=== PATIENT | female | born 1965 | race Caucasian/White ===

== ENCOUNTER → 2016-05-11 | Outpatient (CLI) | payer MEDICARE ==
--- NOTE | 2016-05-12 13:05 | MM ---
Reason for exam: screening (asymptomatic). Last mammogram was performed 4 years and 6 months ago. History: Patient had first child at age 32. Reductions of both breasts, April 2006. Physical Findings: A clinical breast exam by your physician is recommended on an annual basis and results should be correlated with mammographic findings. MG 3D Screening Mammo W/Cad Bilateral CC and MLO view(s) were taken. Prior study comparison: October 25, 2011, CAD bilateral diagnostic mammogram. April 13, 2008, bilateral diagnostic digital mammog. There are scattered fibroglandular densities. Finding: There are typically benign round calcifications in both breasts. There is a chronic nodularity in the right breast. There is no discrete abnormality. ASSESSMENT: Benign, BI-RAD 2 RECOMMENDATION: Routine screening mammogram of both breasts in 1 year.
== END | disposition home or self-care (01) ==
LOC: RADMAMWWP 16:12
PROVIDERS: ATTEND Obstetrics & Gynecology
DX: Z12.31 Encounter for screening mammogram for malignant neoplasm of breast (principal); Z98.890 Other specified postprocedural states
CPT/HCPCS: 77063; G0202

== ENCOUNTER → 2017-09-12 | Outpatient (CLI) | payer MEDICARE ==
[2017-09-12 09:59] LABS: HCT 40.7 % (34.0-46.0); MCH 29.7 pg (25.0-35.0); MCHC 34.3 g/dL (31.0-37.0); MCV 86.4 fL (80.0-100.0); Mean Platelet Volume 8.2; Platelet Count 182 k/uL (150-450); RBC 4.71 m/uL (3.80-5.40); RDW 13.5 % (11.5-15.5); WBC 5.4 k/uL (3.8-10.6)
[2017-09-12 10:36] LABS: ALT 37 U/L (9-52); AST 20 U/L (14-36); Albumin 4.1 g/dL (3.5-5.0); Alkaline Phosphatase 61 U/L (38-126); Anion Gap 11 mmol/L; Blood Urea Nitrogen 14 mg/dL (7-17); Calcium 9.7 mg/dL (8.4-10.2); Carbon Dioxide 27 mmol/L (22-30); Chloride 105 mmol/L (98-107); Cholesterol 204 mg/dL (<200); Glucose 80 mg/dL (74-99); HDL Cholesterol 43 mg/dL (40-60); LDL Cholesterol,Calculated 131 mg/dL (0-99); Potassium 4.4 mmol/L (3.5-5.1); Sodium 143 mmol/L (137-145); Total Bilirubin 0.4 mg/dL (0.2-1.3); Total Protein 6.4 g/dL (6.3-8.2); Triglycerides 150 mg/dL (<150)
== END | disposition home or self-care (01) ==
LOC: LABWHC1 09:09
PROVIDERS: ATTEND Obstetrics & Gynecology
DX: Z13.1 Encounter for screening for diabetes mellitus (principal); Z13.220 Encounter for screening for lipoid disorders
CPT/HCPCS: 36415; 80053; 80061; 84439; 84443; 84479; 85027

== ENCOUNTER 2017-10-17 20:41 | Observation (INO) | payer MEDICARE ==
[2017-10-17] MEDS ORDERED: ASPIRIN 81 MG PO STA (21:41)
--- NOTE | 2017-10-17 21:45 | ED ---
General Adult HPI - General Chief complaint: Chest Pain Stated complaint: chest pain Source: patient Mode of arrival: ambulatory Limitations: no limitations - History of Present Illness Initial comments: Dictation was produced using [employer] dictation software. please excuse any grammatical, word or spelling errors. Chief Complaint: 52-year-old female past medical history of asthma, dyslipidemia presents with chest pain 1 week. History of Present Illness: Her symptoms are described as a dull pressure to the substernal area that radiates to the back. Patient's CT symptoms started about 7 days ago progressively increased to today. States her symptoms were worse today prompted her to come to the emergency Department. She states that her symptoms began chest with radiation to the back and to the bilateral jaw area. She has positive family history of cardiac disease in her family were her grandfather had heart attack when he was around the same age. Patient denies any associated diaphoresis or radiation to the upper extremities. The ROS documented in this emergency department record has been reviewed and confirmed by me. Those systems with pertinent positive or negative responses have been documented in the HPI. All other systems are other negative and/or noncontributory. - Related Data Home Medications Medication Instructions Recorded Confirmed Albuterol Sulfate [Ventolin HFA] 2 puff INHALATION RT-Q4H PRN 03/11/14 10/17/17 Ibuprofen [Motrin] 800 mg PO TID PRN 03/11/14 10/17/17 LORazepam [Ativan] 1 mg PO TID PRN 03/11/14 10/17/17 traZODone HCL 150 mg PO HS 03/11/14 10/17/17 Acetaminophen Tab [Tylenol Tab] 650 mg PO Q4H PRN 10/17/17 10/17/17 Montelukast [Singulair] 10 mg PO DAILY 10/17/17 10/17/17 Previous Rx's Medication Instructions Recorded Sertraline [Zoloft] 150 mg PO HS #90 tab 03/18/14 Allergies Allergy/AdvReac Type Severity Reaction Status Date / Time latex Allergy Anaphylaxis Verified 10/17/17 22:23 Review of Systems ROS Statement: Those systems with pertinent positive or pertinent negative responses have been documented in the HPI. ROS Other: All systems not noted in ROS Statement are negative. Past Medical History Past Medical History: Asthma, Eye Disorder, Osteoarthritis (OA) Additional Past Medical History / Comment(s): History of chest pain but no problems found. Hx of detached retina History of Any Multi-Drug Resistant Organisms: None Reported Past Surgical History: Breast Surgery, Hernia Repair, Tonsillectomy Additional Past Surgical History / Comment(s): anabell breast reduction, Past Anesthesia/Blood Transfusion Reactions: No Reported Reaction Past Psychological History: ADD/ADHD, Anxiety, Depression Smoking Status: Never smoker Past Alcohol Use History: Occasional Past Drug Use History: Marijuana General Exam - General Exam Comments Initial Comments: PHYSICAL EXAM: General Impression: Alert and oriented x3, not in acute distress HEENT: Normocephalic atraumatic, extra-ocular movements intact, pupils equal and reactive to light bilaterally, mucous membranes moist. Cardiovascular: Heart regular rate and rhythm, S1&S2 audible, no murmurs, rubs or gallops Chest: Lungs clear to auscultation bilaterally, no rhonchi, no wheeze, no rales Abdomen: Bowel sounds present, abdomen soft, non-tender, non-distended, no organomegaly Musculoskeletal: Pulses present and equal in all extremities, no peripheral edema Motor: Power 5/5 bilaterally, no focal deficits noted Neurological: CN II-XII grossly intact, no focal motor or sensory deficits noted Skin: Intact with no visualized rashes Psych: Normal affect and mood Limitations: no limitations Course Vital Signs 10/17/17 10/17/17 20:53 22:11 Temperature 98.9 F Pulse Rate 69 68 Respiratory 18 18 Rate Blood Pressure 123/83 121/75 O2 Sat by Pulse 98 96 Oximetry Medical Decision Making - Medical Decision Making ED course: 52-year-old female with clinical presentation suspicious for acute coronary syndrome. Vital signs upon arrival are within normal limits. EKG shows nonspecific T-wave changes in the precordial leads. Patient is well-appearing at this time. She denies any chest pain at the moment. Patient has multiple risk factors including her comorbidities and family history. Cardiac workup was performed. She reports having had cardiac workup several years ago where stress test was performed and found to be unremarkable.Laboratory evaluation obtained. CBC unremarkable, cardiac panel unremarkable. Metabolic panel is unremarkable. First troponin is negative. Chest x-ray shows no acute processes. Given clinical presentation there is some suspicion that her symptoms represent acute coronary syndrome. She has multiple risk factors. Patient to be placed in observation for cardiac stress test. EKG interpretation: Ventricular rate 70. Sinus rhythm. VA interval 168, QRS 88 , QTC 390 No VA prolongation, no QTC prolongation, no ST or T-wave changes noted. Nonspecific T-wave inversions in precordial leads. Overall, this EKG is unremarkable - Lab Data Result diagrams: 10/17/17 21:30 10/17/17 21:30 Lab Results 10/17/17 10/17/17 10/17/17 Range/Units 21:30 21:30 21:30 WBC 5.9 (3.8-10.6) k/uL RBC 4.33 (3.80-5.40) m/uL Hgb 12.9 (11.4-16.0) gm/dL Hct 37.0 (34.0-46.0) % MCV 85.3 (80.0-100.0) fL MCH 29.7 (25.0-35.0) pg MCHC 34.8 (31.0-37.0) g/dL RDW 13.9 (11.5-15.5) % Plt Count 194 (150-450) k/uL Neutrophils % 56 % Lymphocytes % 31 % Monocytes % 6 % Eosinophils % 4 % Basophils % 1 % Neutrophils # 3.3 (1.3-7.7) k/uL Lymphocytes # 1.8 (1.0-4.8) k/uL Monocytes # 0.4 (0-1.0) k/uL Eosinophils # 0.3 (0-0.7) k/uL Basophils # 0.0 (0-0.2) k/uL PT (9.0-12.0) sec INR (<1.2) APTT (22.0-30.0) sec Sodium 139 (137-145) mmol/L Potassium 3.8 (3.5-5.1) mmol/L Chloride 105 (98-107) mmol/L Carbon Dioxide 24 (22-30) mmol/L Anion Gap 10 mmol/L BUN 14 (7-17) mg/dL Creatinine 1.10 H (0.52-1.04) mg/dL Est GFR (CKD-EPI)AfAm 66 (>60 ml/min/1.73 sqM) Est GFR (CKD-EPI)NonAf 57 (>60 ml/min/1.73 sqM) Glucose 91 (74-99) mg/dL Calcium 9.4 (8.4-10.2) mg/dL Magnesium 2.1 (1.6-2.3) mg/dL Total Bilirubin 0.3 (0.2-1.3) mg/dL AST 28 (14-36) U/L ALT 45 (9-52) U/L Alkaline Phosphatase 60 (38-126) U/L Total Creatine Kinase 108 (30-135) U/L CK-MB (CK-2) 1.0 (0.0-2.4) ng/mL CK-MB (CK-2) Rel Index 0.9 Troponin I <0.012 (0.000-0.034) ng/mL Total Protein 6.2 L (6.3-8.2) g/dL Albumin 4.1 (3.5-5.0) g/dL 10/17/17 Range/Units 21:30 WBC (3.8-10.6) k/uL RBC (3.80-5.40) m/uL Hgb (11.4-16.0) gm/dL Hct (34.0-46.0) % MCV (80.0-100.0) fL MCH (25.0-35.0) pg MCHC (31.0-37.0) g/dL RDW (11.5-15.5) % Plt Count (150-450) k/uL Neutrophils % % Lymphocytes % % Monocytes % % Eosinophils % % Basophils % % Neutrophils # (1.3-7.7) k/uL Lymphocytes # (1.0-4.8) k/uL Monocytes # (0-1.0) k/uL Eosinophils # (0-0.7) k/uL Basophils # (0-0.2) k/uL PT 10.0 (9.0-12.0) sec INR 1.0 (<1.2) APTT 23.5 (22.0-30.0) sec Sodium (137-145) mmol/L Potassium (3.5-5.1) mmol/L Chloride (98-107) mmol/L Carbon Dioxide (22-30) mmol/L Anion Gap mmol/L BUN (7-17) mg/dL Creatinine (0.52-1.04) mg/dL Est GFR (CKD-EPI)AfAm (>60 ml/min/1.73 sqM) Est GFR (CKD-EPI)NonAf (>60 ml/min/1.73 sqM) Glucose (74-99) mg/dL Calcium (8.4-10.2) mg/dL Magnesium (1.6-2.3) mg/dL Total Bilirubin (0.2-1.3) mg/dL AST (14-36) U/L ALT (9-52) U/L Alkaline Phosphatase (38-126) U/L Total Creatine Kinase (30-135) U/L CK-MB (CK-2) (0.0-2.4) ng/mL CK-MB (CK-2) Rel Index Troponin I (0.000-0.034) ng/mL Total Protein (6.3-8.2) g/dL Albumin (3.5-5.0) g/dL Disposition Clinical Impression: Chest pain Disposition: ADMITTED IP TO THIS [facility] Referrals: Ashly Lopes MD [Primary Care Provider] - 1-2 days Decision Time: 23:18
[2017-10-17 22:18] LABS: Basophils % (A) 1 %; Eosinophils # (A) 0.3 k/uL (0-0.7); Eosinophils % (A) 4 %; HGB 12.9 gm/dL (11.4-16.0); Lymphocytes # (A) 1.8 k/uL (1.0-4.8); Lymphocytes % (A) 31 %; MCH 29.7 pg (25.0-35.0); MCHC 34.8 g/dL (31.0-37.0); MCV 85.3 fL (80.0-100.0); Mean Platelet Volume 8.1; Monocytes # (A) 0.4 k/uL (0-1.0); Monocytes % (A) 6 %; Neutrophils # (A) 3.3 k/uL (1.3-7.7); Neutrophils % (A) 56 %; Platelet Count 194 k/uL (150-450); RBC 4.33 m/uL (3.80-5.40); RDW 13.9 % (11.5-15.5); WBC 5.9 k/uL (3.8-10.6)
[2017-10-17 22:25] LABS: Albumin 4.1 g/dL (3.5-5.0); Calcium 9.4 mg/dL (8.4-10.2); Magnesium 2.1 mg/dL (1.6-2.3); Potassium 3.8 mmol/L (3.5-5.1); Total Bilirubin 0.3 mg/dL (0.2-1.3); Total Protein 6.2 g/dL (6.3-8.2)
[2017-10-17 22:26] LABS: Partial Thromboplastin Time 23.5 sec (22.0-30.0)
--- NOTE | 2017-10-17 22:38 | XR ---
EXAMINATION TYPE: XR chest 2V DATE OF EXAM: 10/17/2017 COMPARISON: 07/01/2013 HISTORY: Chest pressure TECHNIQUE: Frontal and lateral views of the chest are obtained. FINDINGS: Heart and mediastinum are normal. Lungs are clear. Diaphragm is normal. Bony thorax appear s normal. IMPRESSION: Normal chest. No change.
[2017-10-17 22:40] LABS: Creatine Kinase 108 U/L (30-135)
[2017-10-17 22:53] LABS: Troponin I <0.012 ng/mL (0.000-0.034)
[2017-10-17] MEDS ORDERED: NALOXONE 0.4 MG/ML 1 ML VIAL IV PRN (23:15)
[2017-10-18 01:51] VITALS: RESP 16
[2017-10-18 01:53] VITALS: BMI 28.0
[2017-10-18] MEDS ORDERED: traZODone HCL 50 MG TAB PO ONE (02:22)
[2017-10-18] MEDS ORDERED: ACETAMINOPHEN TAB 325 MG TAB PO PRN (09:08)
[2017-10-18] MEDS ORDERED: ALBUTEROL NEBULIZED 2.5 MG/3 ML INHALATION PRN (09:08)
[2017-10-18] MEDS ORDERED: LORazepam 1 MG TAB PO PRN (09:08)
[2017-10-18] MEDS ORDERED: MONTELUKAST 10 MG TAB PO SCH (09:15)
--- NOTE | 2017-10-18 11:03 | P.CRDCN ---
History of Present Illness History of present illness: Mrs. Carrera is a pleasant 52-year-old female past medical history significant for asthma, anxiety and occasional marijuana use. She denies history of coronary artery disease. She has not seen a banana expert in over 5 years. We have been asked to see her in consultation for chest pain. She complains of non-specific chest pain intermittently for the past week. The pain starts in the mid-sternal region and radiates up into her neck. She has associated shortness of breath and dizziness. Yesterday while at work the dizziness was very intense requiring her to come for evaluation. She denies associated palpitations, nausea, vomiting or diaphoresis. She also complains of generalized fatigue for the past week as well. She saw here PCP for the shortness of breath and they started her back on singulair. She did have her cholesterol checked 3 months ago by her primary and it was elevated and diet/ exercise were recommended. EKG reveals sinus mechanism with no acute ST or T-wave abnormalities. Chest xray negative for an acute cardiopulmonary process. Laboratory data reviewed, hemoglobin 12.9, platelets 194, d-dimer negative, sodium 139, potassium 3.8, magnesium 2.1, creatinine 1.1, cardiac enzymes negative 3. Review of Systems At the time of my exam: CONSTITUTIONAL: Denies fever. Denies chills. EYES: Denies blurred vision. Denies vision changes. Denies eye pain. EARS, NOSE, MOUTH & THROAT: Denies headache. Denies sore throat. Denies ear pain. CARDIOVASCULAR: Denies chest pain. Denies shortness of breath. Denies orthopnea. Denies PND. Denies palpitations. RESPIRATORY: Denies cough. GASTROINTESTINAL: Denies abdominal pain. Denies diarrhea. Denies constipation. Denies nausea. Denies vomiting. MUSCULOSKELETAL: Denies myalgias. INTEGUMENTARY: Denies pruitis. Denies rash. NEUROLOGIC: Denies numbness. Denies tingling. Denies weakness. PSYCHIATRIC: Denies anxiety. Denies depression. ENDOCRINE: Denies fatigue. Denies weight change. Denies polydipsia. Denies polyurina. GENITOURINARY: Denies burning, hematuria or urgency with micturation. HEMATOLOGIC: Denies history of anemia. Denies bleeding. Past Medical History Past Medical History: Asthma, Eye Disorder, Osteoarthritis (OA) Additional Past Medical History / Comment(s): History of chest pain but no problems found. Hx of detached retina History of Any Multi-Drug Resistant Organisms: None Reported Past Surgical History: Breast Surgery, Hernia Repair, Tonsillectomy Additional Past Surgical History / Comment(s): anabell breast reduction, D and C for heavy bleeding Past Anesthesia/Blood Transfusion Reactions: No Reported Reaction Smoking Status: Never smoker - Past Family History Mother Family Medical History: Cancer Additional Family Medical History / Comment(s): Lung CA, ETOH Father Family Medical History: Cancer Additional Family Medical History / Comment(s): Skin Ca Medications and Allergies Home Medications Medication Instructions Recorded Confirmed Type Albuterol Sulfate [Ventolin HFA] 2 puff INHALATION RT-Q4H PRN 03/11/14 10/18/17 History Ibuprofen [Motrin] 800 mg PO TID PRN 03/11/14 10/18/17 History LORazepam [Ativan] 1 mg PO TID PRN 03/11/14 10/18/17 History traZODone HCL 150 mg PO HS 03/11/14 10/18/17 History Sertraline [Zoloft] 150 mg PO HS #90 tab 03/18/14 10/18/17 Rx Acetaminophen Tab [Tylenol Tab] 650 mg PO Q4H PRN 10/17/17 10/18/17 History Montelukast [Singulair] 10 mg PO DAILY 10/17/17 10/18/17 History Allergies Allergy/AdvReac Type Severity Reaction Status Date / Time azithromycin Allergy Rash/Hives Verified 10/18/17 01:42 latex Allergy Anaphylaxis Verified 10/18/17 01:42 Physical Exam Vitals: Vital Signs Temp Pulse Pulse Resp BP BP Pulse Ox 10/18/17 07:00 98.3 F 65 16 95/56 97 10/18/17 03:44 97.6 F 54 L 16 99/53 98 10/18/17 03:36 16 10/18/17 02:12 16 10/18/17 01:51 97.4 F L 53 L 16 125/76 100 10/17/17 23:51 58 L 17 124/68 100 10/17/17 22:11 68 18 121/75 96 10/17/17 20:53 98.9 F 69 18 123/83 98 Intake and Output 10/17/17 10/18/17 10/18/17 22:59 06:59 14:59 Other: # Voids 1 Weight 81.193 kg 81.1 kg Blood pressure 95/56 heart rate 65 afebrile maintaining oxygen saturation on room air GENERAL: This is a 52-year-old female in no apparent distress at the time of my examination. HEENT: Head is atraumatic, normocephalic. Pupils are equal, round. Sclerae anicteric. Conjunctivae are clear. Mucous membranes of the mouth are moist. Neck is supple. There is no jugular venous distention. No carotid bruit is heard. LUNGS: Clear to auscultation no wheezes, rales or rhonchi. No chest wall tenderness is noted on palpation or with deep breathing. HEART: Regular rate and rhythm without murmurs, rubs or gallops. S1 and S2 heard. ABDOMEN: Soft, nontender. Bowel sounds are heard. No organomegaly noted. EXTREMITIES: No evidence of peripheral edema and no calf tenderness noted. VASCULAR: Radial and dorsalis pedis pulses palpated, no evidence of clubbing. NEUROLOGIC: Patient is awake, alert and oriented x3. Results 10/17/17 21:30 10/17/17 21:30 Cardiac Enzymes 10/17/17 10/17/17 10/18/17 Range/Units 21:30 21:30 06:29 AST 28 (14-36) U/L CK-MB (CK-2) 1.0 (0.0-2.4) ng/mL Troponin I <0.012 <0.012 (0.000-0.034) ng/mL Coagulation 10/17/17 Range/Units 21:30 PT 10.0 (9.0-12.0) sec APTT 23.5 (22.0-30.0) sec CBC 10/17/17 Range/Units 21:30 WBC 5.9 (3.8-10.6) k/uL RBC 4.33 (3.80-5.40) m/uL Hgb 12.9 (11.4-16.0) gm/dL Hct 37.0 (34.0-46.0) % Plt Count 194 (150-450) k/uL Comprehensive Metabolic Panel 10/17/17 Range/Units 21:30 Sodium 139 (137-145) mmol/L Potassium 3.8 (3.5-5.1) mmol/L Chloride 105 (98-107) mmol/L Carbon Dioxide 24 (22-30) mmol/L BUN 14 (7-17) mg/dL Creatinine 1.10 H (0.52-1.04) mg/dL Glucose 91 (74-99) mg/dL Calcium 9.4 (8.4-10.2) mg/dL AST 28 (14-36) U/L ALT 45 (9-52) U/L Alkaline Phosphatase 60 (38-126) U/L Total Protein 6.2 L (6.3-8.2) g/dL Albumin 4.1 (3.5-5.0) g/dL Current Medications Generic Name Dose Route Start Last Admin Trade Name Freq PRN Reason Stop Dose Admin Naloxone HCl 0.2 mg 10/17/17 23:15 Narcan IV Q2M PRN Opioid Reversal Intake and Output 10/17/17 10/18/17 10/18/17 22:59 06:59 14:59 Other: # Voids 1 Weight 81.193 kg 81.1 kg 10/17/17 21:30 10/17/17 21:30 Assessment and Plan Assessment: ASSESSMENT Chest pain, atypical. An acute coronary event has been ruled out with no EKG evidence of ischemia and negative cardiac enzymes. Dyslipidemia Asthma PLAN Obtain 2-D echocardiogram and Doppler study to assess cardiac structure and function. Perform stress echocardiogram to assess her chest induced cardiac ischemia. Recommend lifestyle modifications for lowering of LDL cholesterol. Her ASCVD 10 year risk is 2.3%. No statins indicated at this time. His chest chest is normal she is stable from a cardiac perspective, follow-up with Dr. King in 3-4 weeks. Thank you kindly for this consultation. Nurse Practitioner note has been reviewed, I agree with a documented findings and plan of care. Patient was seen and examined.
[2017-10-18 11:52] LABS: Blood Urea Nitrogen 15 mg/dL (7-17); Cholesterol 183 mg/dL (<200); HDL Cholesterol 37 mg/dL (40-60); LDL Cholesterol,Calculated 118 mg/dL (0-99); Triglycerides 140 mg/dL (<150)
[2017-10-18 12:30] VITALS: BP 93/65; PULSE 89; TEMP 97.5
--- NOTE | 2017-10-18 15:21 | ECHOS ---
STRESS ECHOCARDIOGRAM INDICATIONS: Chest pain. BASELINE HEART RATE: 59 BASELINE BLOOD PRESSURE: 112/63 MAXIMUM HEART RATE: 153 MAXIMUM BLOOD PRESSURE: 115/64 85% MPHR: 141 100% MPHR: 160 METS: 10.5 MAXIMUM STAGE REACHED: III TOTAL EXERCISE TIME: 9:30 CLINICAL INFORMATION: A 52-year-old female with a history of recurrent chest discomfort. Baseline heart rate 59 beats per minute, baseline blood pressure 112/63 mmHg. intervals. Patient exercised on a Aaron protocol for 9 minutes 30 seconds achieving a peak heart rate of 153 beats per minute. Normal blood pressure response. There was an initial increase in her blood pressure followed by drop in blood pressure. At recovery, blood pressure was 107/62 mmHg. She complained of chest discomfort through the chest with shortness of breath. There was no ECG evidence for ischemia. No arrhythmias were noted. Baseline 2D echo images showed normal LV size and systolic function without segmental wall motion abnormalities. At peak exercise, there was excellent augmentation of overall LV contractility without developing any wall motion abnormalities. At recovery, regional global LV systolic function remained normal. IMPRESSION: Good exercise capacity, no ECG or echocardiographic evidence for ischemia. Mild drop in blood pressure at peak exercise. MMODL / IJN: [id number] /
--- NOTE | 2017-10-18 17:47 | ECHOF ---
Referral Reason:cp, sob MEASUREMENTS -------- HEIGHT: 170.2 cm WEIGHT: 80.7 kg BP: 95/56 IVSd: 1.1 cm (0.6 - 1.1) LVIDd: 4.4 cm (3.9 - 5.3) LVPWd: 1.0 cm (0.6 - 1.1) IVSs: 1.5 cm LVIDs: 2.8 cm LVPWs: 1.6 cm LA Diam: 3.6 cm (2.7 - 3.8) RVIDd: 3.1 cm (< 3.3) LAESV Index (A-L): 19.62 ml/m Ao Diam: 3.1 cm (2.0 - 3.7) AV Cusp: 2.2 cm (1.5 - 2.6) EPSS: 0.3 cm MV E Oh: 0.95 m/s MV DecT: 207 ms MV A Oh: 0.88 m/s MV E/A Ratio: 1.07 MV EF SLOPE: 96.51 mm/s (70 - 150) MV EXCURSION: 14.64 mm (> 18.000) FINDINGS -------- Sinus rhythm. This was a technically good study. The left ventricular size is normal. There is borderline concentric left ventricular hypertrophy. Overall left ventricular systolic function is normal with, an EF between 60 - 65 %. The right ventricle is normal in size. Normal LA size by volume 22+/-6 ml/m2. The right atrium is normal in size. There is mild aortic valve sclerosis. Mild mitral annular calcification present. The tricuspid valve appears structurally normal. There is no pulmonic regurgitation present. The aortic root size is normal. Normal inferior vena cava with normal inspiratory collapse consistent with estimated right atrial pre ssure of 5 mmHg. There is no pericardial effusion. CONCLUSIONS -------- 1. Sinus rhythm. 2. This was a technically good study. 3. The left ventricular size is normal. 4. There is borderline concentric left ventricular hypertrophy. 5. Overall left ventricular systolic function is normal with, an EF between 60 - 65 %. 6. The right ventricle is normal in size. 7. Normal LA size by volume 22+/-6 ml/m2. 8. The right atrium is normal in size. 9. There is mild aortic valve sclerosis. 10. Mild mitral annular calcification present. 11. The tricuspid valve appears structurally normal. 12. There is no pulmonic regurgitation present. 13. The aortic root size is normal. 14. Normal inferior vena cava with normal inspiratory collapse consistent with estimated right atrial pressure of 5 mmHg. 15. There is no pericardial effusion. RN ENDOCRINOLOGY: Emelina Gates RDCS
[2017-10-18] MEDS ORDERED: SERTRALINE 50 MG TAB PO SCH (21:00)
[2017-10-18] MEDS ORDERED: traZODone HCL 100 MG TAB PO SCH (21:00)
--- NOTE | 2017-10-19 00:56 | P.HPIM ---
History of Present Illness H&P Date: 10/18/17 Chief Complaint: Chest pain Mrs. Carrera is a pleasant 52-year-old female past medical history significant for asthma, anxiety and occasional marijuana use. She complains of non-specific chest pain intermittently for the past week. The pain starts in the mid-sternal region and radiates up into her neck. She has associated shortness of breath and dizziness. Yesterday while at work the dizziness was very intense requiring her to come for evaluation. She denies associated palpitations, nausea, vomiting or diaphoresis. She also complains of generalized fatigue for the past week as well. She saw here PCP for the shortness of breath and they started her back on singulair. She did have her cholesterol checked 3 months ago by her primary and it was elevated and diet/ exercise were recommended. EKG reveals sinus mechanism with no acute ST or T-wave abnormalities. Chest xray negative for an acute cardiopulmonary process. Laboratory data reviewed, hemoglobin 12.9, platelets 194, d-dimer negative, sodium 139, potassium 3.8, magnesium 2.1, creatinine 1.1, cardiac enzymes negative 3. Review of Systems Constitutional: Patient denies any fever or chills . No generalized weakness or weight loss. Abdomen: Patient denied nausea vomiting and diarrhea and abdominal pain. Cardiovascular: Patient denies any chest pain or short of breath no palpitations. Respiratory: patient denied any cough is from production. No shortness of breath Neurologic: Patient denied any numbness or tingling headache. Musculoskeletal: Patient denies any complaints of joint swelling or deformity. Skin: Negative Psychiatric: Negative Endocrine: No heat or cold intolerance. No recent weight gain. Genitourinary: No dysuria or hematuria. All other 14 point ROS negative except the above Past Medical History Past Medical History: Asthma, Eye Disorder, Osteoarthritis (OA) Additional Past Medical History / Comment(s): History of chest pain but no problems found. Hx of detached retina History of Any Multi-Drug Resistant Organisms: None Reported Past Surgical History: Breast Surgery, Hernia Repair, Tonsillectomy Additional Past Surgical History / Comment(s): anabell breast reduction, D and C for heavy bleeding Past Anesthesia/Blood Transfusion Reactions: No Reported Reaction Smoking Status: Never smoker - Past Family History Mother Family Medical History: Cancer Additional Family Medical History / Comment(s): Lung CA, ETOH Father Family Medical History: Cancer Additional Family Medical History / Comment(s): Skin Ca Medications and Allergies Home Medications Medication Instructions Recorded Confirmed Type Albuterol Sulfate [Ventolin HFA] 2 puff INHALATION RT-Q4H PRN 03/11/14 10/18/17 History LORazepam [Ativan] 1 mg PO TID PRN 03/11/14 10/18/17 History traZODone HCL 150 mg PO HS 03/11/14 10/18/17 History Sertraline [Zoloft] 150 mg PO HS #90 tab 03/18/14 10/18/17 Rx Acetaminophen Tab [Tylenol] 650 mg PO Q4H PRN 10/17/17 10/18/17 History Montelukast [Singulair] 10 mg PO DAILY 10/17/17 10/18/17 History Allergies Allergy/AdvReac Type Severity Reaction Status Date / Time azithromycin Allergy Rash/Hives Verified 10/18/17 01:42 latex Allergy Anaphylaxis Verified 10/18/17 01:42 Physical Exam Vitals: Vital Signs Temp Pulse Pulse Resp BP BP Pulse Ox 10/18/17 07:00 98.3 F 65 16 95/56 97 10/18/17 03:44 97.6 F 54 L 16 99/53 98 10/18/17 03:36 16 10/18/17 02:12 16 10/18/17 01:51 97.4 F L 53 L 16 125/76 100 10/17/17 23:51 58 L 17 124/68 100 10/17/17 22:11 68 18 121/75 96 10/17/17 20:53 98.9 F 69 18 123/83 98 Intake and Output 10/17/17 10/18/17 10/18/17 22:59 06:59 14:59 Other: # Voids 1 Weight 81.193 kg 81.1 kg PHYSICAL EXAMINATION: Patient is lying in the bed comfortably, no acute distress, awake alert and oriented.. HEENT: Normocephalic. Neck is supple. Pupils reactive. Nostrils clear. Oral cavity is moist. Ears reveal no drainage. Neck reveals no JVD, carotid bruits, or thyromegaly. CHEST EXAMINATION: Trachea is central. Symmetrical expansion. Lung jackman clear to auscultation and percussion. CARDIAC: Normal S1, S2 with no gallops. No murmurs ABDOMEN: Soft. Bowel sounds normal. No organomegaly. No abdominal bruits. Extremities: reveal no edema. No clubbing or cyanosis Neurologically awake, alert, oriented x3 with well-coordinated movements. No focal deficits noted Skin: No rash or skin lesions. Psychiatric: Coperative. Nonsuicidal Musculoskeletal: No joint swelling or deformity. Normal range of motion. Results CBC & Chem 7: 10/17/17 21:30 10/18/17 06:29 Labs: Abnormal Lab Results - Last 24 Hours (Table) 10/17/17 10/18/17 Range/Units 21:30 06:29 Creatinine 1.10 H (0.52-1.04) mg/dL Total Protein 6.2 L (6.3-8.2) g/dL LDL Cholesterol, Calc 118 H (0-99) mg/dL HDL Cholesterol 37 L (40-60) mg/dL Thrombosis Risk Factor Assmnt - Choose All That Apply Each Factor Represents 1 point: Age 41-60 years Thrombosis Risk Factor Assessment Total Risk Factor Score: 1 Thrombosis Risk Factor Assessment Level: Low Risk Assessment and Plan Assessment: ASSESSMENT Chest pain, atypical. An acute coronary event has been ruled out with no EKG evidence of ischemia and negative cardiac enzymes. Dyslipidemia Asthma Nausea arthritis Depression PLAN Patient be continued on telemetry monitoring. Serial EKGs and troponins negative. LDL 118. Cardiology has seen the patient and recommended stress echocardiogram. Time with Patient: Greater than 30
--- NOTE | 2017-10-19 00:58 | P.DS ---
Providers Date of admission: 10/17/17 23:15 Expected date of discharge: 10/18/17 Attending physician: Sundar Daniel MD Consults: 10/18/17 03:46 Consult Physician Routine Consulting Provider: Cayetano Velazco Consult Reason/Comments: Chest Pain Do you want consulting provider notified?: Yes, Notify in am Primary care physician: Moses Limon Hospital Course: Discharge diagnosis Chest pain, atypical. An acute coronary event has been ruled out with no EKG evidence of ischemia and negative cardiac enzymes. Dyslipidemia Asthma Nausea arthritis Depression Hospital course Mrs. Carrera is a pleasant 52-year-old female past medical history significant for asthma, anxiety and occasional marijuana use. She complains of non-specific chest pain intermittently for the past week. The pain starts in the mid-sternal region and radiates up into her neck. She has associated shortness of breath and dizziness. Yesterday while at work the dizziness was very intense requiring her to come for evaluation. She denies associated palpitations, nausea, vomiting or diaphoresis. She also complains of generalized fatigue for the past week as well. She saw here PCP for the shortness of breath and they started her back on singulair. She did have her cholesterol checked 3 months ago by her primary and it was elevated and diet/ exercise were recommended. EKG reveals sinus mechanism with no acute ST or T-wave abnormalities. Chest xray negative for an acute cardiopulmonary process. Laboratory data reviewed, hemoglobin 12.9, platelets 194, d-dimer negative, sodium 139, potassium 3.8, magnesium 2.1, creatinine 1.1, cardiac enzymes negative 3. Patient was continued on telemetry monitoring. Serial EKGs and troponins negative. LDL 118. Cardiology has seen the patient and recommended stress echocardiogram. Lifestyle modification for hyperlipidemia was recommended. She was echocardiogram showed good exercise capacity. No EKG or echocardiographic evidence of ischemia. Patient is otherwise symptom free. Stable to be discharged home. Discharge physical examination was done and vitals reviewed. Patient Condition at Discharge: Good Plan - Discharge Summary New Discharge Prescriptions: Continue traZODone HCL 150 mg PO HS LORazepam [Ativan] 1 mg PO TID PRN PRN Reason: Agitation Or Acute Anxiety Albuterol Sulfate [Ventolin HFA] 2 puff INHALATION RT-Q4H PRN PRN Reason: Dyspnea Sertraline [Zoloft] 150 mg PO HS #90 tab Montelukast [Singulair] 10 mg PO DAILY Acetaminophen Tab [Tylenol] 650 mg PO Q4H PRN PRN Reason: Pain Discontinued Ibuprofen [Motrin] 800 mg PO TID PRN PRN Reason: Pain Discharge Medication List Albuterol Sulfate [Ventolin HFA] 2 puff INHALATION RT-Q4H PRN 03/11/14 [History] LORazepam [Ativan] 1 mg PO TID PRN 03/11/14 [History] traZODone HCL 150 mg PO HS 03/11/14 [History] Sertraline [Zoloft] 150 mg PO HS #90 tab 03/18/14 [Rx] Acetaminophen Tab [Tylenol] 650 mg PO Q4H PRN 10/17/17 [History] Montelukast [Singulair] 10 mg PO DAILY 10/17/17 [History] Follow up Appointment(s)/Referral(s): Charles Vargas MD [STAFF PHYSICIAN] - 11/07/17 5:30 pm Ashly Lopes MD [Primary Care Provider] - 1-2 days Patient Instructions/Handouts: Chest Pain (DC) Discharge Disposition: HOME SELF-CARE
== END 2017-10-18 15:40 | disposition home or self-care (01) ==
LOC: EC 20:41 → 3OBS 23:15
PROVIDERS: ADMIT Internal Medicine; ATTEND Internal Medicine
DX: R07.89 Other chest pain (principal); J45.909 Unspecified asthma, uncomplicated; E78.5 Hyperlipidemia, unspecified; M19.90 Unspecified osteoarthritis, unspecified site; F90.9 Attention-deficit hyperactivity disorder, unspecified type; F41.9 Anxiety disorder, unspecified; F32.9 Major depressive disorder, single episode, unspecified; R06.02 Shortness of breath; R42 Dizziness and giddiness; R53.83 Other fatigue; Z79.899 Other long term (current) drug therapy; Z91.040 Latex allergy status; Z82.49 Family history of ischemic heart disease and other diseases of the circulatory system; Z80.1 Family history of malignant neoplasm of trachea, bronchus and lung; Z80.8 Family history of malignant neoplasm of other organs or systems; Z88.1 Allergy status to other antibiotic agents
CPT/HCPCS: 93005 ×2; 99285; 36415; 93306; 93351; 85379; 80061; 80053; 82565; 82550; 82553; 83735; 84520; 84484 ×2; 85025; 85610; 85730; 71046; G0378 ×2

== ENCOUNTER 2019-10-02 19:08 | Emergency (ER) | payer MEDICARE ==
[2019-10-02 19:13] VITALS: RESP 18
[2019-10-02] MEDS ORDERED: methylPREDNISolone SOD SUCCI 125 MG/2 ML VIAL IV STA (19:32)
[2019-10-02] MEDS ORDERED: IPRATROPIUM-ALBUTEROL 3 ML NEB INHALATION STA (19:33)
--- NOTE | 2019-10-02 19:50 | XR ---
EXAMINATION TYPE: XR chest 2V DATE OF EXAM: 10/02/2019 COMPARISON: 10/17/2017 HISTORY: Difficulty breathing TECHNIQUE: FINDINGS: Heart and mediastinum are normal. Lungs are clear. Diaphragm is normal. Bony thorax appears normal. IMPRESSION: Normal chest. No change.
[2019-10-02] MEDS ORDERED: ALBUTEROL NEBULIZED 2.5 MG/3 ML INHALATION STA (20:07)
[2019-10-02 20:25] LABS: Basophils # (A) 0.1 k/uL (0-0.2); Basophils % (A) 1 %; Eosinophils # (A) 0.4 k/uL (0-0.7); Eosinophils % (A) 5 %; HCT 40.5 % (34.0-46.0); HGB 14.1 gm/dL (11.4-16.0); Lymphocytes # (A) 2.3 k/uL (1.0-4.8); Lymphocytes % (A) 33 %; MCH 30.3 pg (25.0-35.0); MCHC 34.8 g/dL (31.0-37.0); Mean Platelet Volume 8.8; Monocytes # (A) 0.4 k/uL (0-1.0); Monocytes % (A) 6 %; Neutrophils # (A) 3.7 k/uL (1.3-7.7); Neutrophils % (A) 53 %; Platelet Count 234 k/uL (150-450); RBC 4.66 m/uL (3.80-5.40); RDW 13.2 % (11.5-15.5); WBC 7.1 k/uL (3.8-10.6)
[2019-10-02 20:33] LABS: Albumin 4.4 g/dL (3.5-5.0); Calcium 10.1 mg/dL (8.4-10.2); Potassium 3.9 mmol/L (3.5-5.1); Total Bilirubin 0.3 mg/dL (0.2-1.3)
[2019-10-02 20:35] LABS: INR 0.9 (<1.2); Partial Thromboplastin Time 22.4 sec (22.0-30.0); Prothrombin Time 9.7 sec (9.0-12.0)
--- NOTE | 2019-10-02 22:16 | ED ---
General Adult HPI - General Source: patient, RN notes reviewed, old records reviewed Mode of arrival: ambulatory Limitations: no limitations <Konrad Melara - Last Filed: 10/02/19 23:20> <Jayesh Almonte - Last Filed: 10/10/19 12:45> - General Chief complaint: Shortness of Breath Stated complaint: Diff breathing,asthma Time Seen by Provider: 10/02/19 19:23 - History of Present Illness Initial comments: 54-year-old female patient presents to ED for evaluation of her asthma. Patient works that she does have a history of moderate asthma. She reports that for the last 2 months she feels as if her asthma has been worsening. Reports that she has been wheezing and has been having some shortness of breath this feels identical to her asthma. She denies any chest pain. 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 Denies any other complaints. Systemic: Pt denies fatigue, fever/chills, rash. Pt denies weakness, night sweats, weight loss. Neuro: Pt denies headache, visual disturbances, syncope or pre-syncope. HEENT: Pt denies ocular discharge or irritation, otalgia, rhinorrhea, pharyngitis or notable lymphadenopathy. Cardiopulmonary: Pt denies chest pain, heart palpitations, dyspnea on exertion. Abdominal/GI: Pt denies abdominal pain, n/v/d. : Pt denies dysuria, burning w/ urination, frequency/urgency. Denies new onset urinary or bowel incontinence. MSK: Pt denies myalgia, loss of strength or function in extremities. Neuro: Pt denies new onset weakness, paresthesias. (Konrad Melara) - Related Data Home Medications Medication Instructions Recorded Confirmed Albuterol Sulfate [Ventolin HFA] 2 puff INHALATION RT-QID PRN 03/11/14 10/02/19 LORazepam [Ativan] 1 mg PO BID 03/11/14 10/02/19 traZODone HCL 150 mg PO HS 03/11/14 10/02/19 Cholecalciferol [Vitamin D3 (25 1,000 unit PO DAILY 10/02/19 10/02/19 Mcg = 1000 Iu)] Multivitamins, Thera [Multivitamin 1 tab PO DAILY 10/02/19 10/02/19 (formulary)] Sertraline HCl [Zoloft] 100 mg PO HS 10/02/19 10/02/19 Previous Rx's Medication Instructions Recorded Albuterol Nebulized [Ventolin 2.5 mg INHALATION Q4H PRN 10 Days 10/02/19 Nebulized] #40 nebu predniSONE 50 mg PO DAILY #4 tab 10/02/19 Allergies Allergy/AdvReac Type Severity Reaction Status Date / Time erythromycin base Allergy Rash/Hives Verified 10/02/19 20:43 latex Allergy Anaphylaxis Verified 10/02/19 20:43 Review of Systems ROS Other: All systems not noted in ROS Statement are negative. <Konrad Melara - Last Filed: 10/02/19 23:20> ROS Other: All systems not noted in ROS Statement are negative. <Jayesh Almonte - Last Filed: 10/10/19 12:45> ROS Statement: Those systems with pertinent positive or pertinent negative responses have been documented in the HPI. Past Medical History Past Medical History: Asthma, Eye Disorder, GERD/Reflux, Osteoarthritis (OA) Additional Past Medical History / Comment(s): Hx of detached retina History of Any Multi-Drug Resistant Organisms: None Reported Past Surgical History: Breast Surgery, Hernia Repair, Tonsillectomy Additional Past Surgical History / Comment(s): anabell breast reduction, D and C for heavy bleeding Past Anesthesia/Blood Transfusion Reactions: No Reported Reaction Past Psychological History: ADD/ADHD, Anxiety, Depression Smoking Status: Never smoker Past Alcohol Use History: None Reported Past Drug Use History: None Reported - Past Family History Mother Family Medical History: Cancer Additional Family Medical History / Comment(s): Lung CA, ETOH Father Family Medical History: Cancer Additional Family Medical History / Comment(s): Skin Ca <Konrad Melara - Last Filed: 10/02/19 23:20> General Exam Limitations: no limitations <Konrad Melara - Last Filed: 10/02/19 23:20> General appearance: alert, in no apparent distress Head exam: Present: atraumatic, normocephalic, normal inspection Eye exam: Present: normal appearance, PERRL, EOMI. Absent: scleral icterus, conjunctival injection, periorbital swelling ENT exam: Present: normal exam, mucous membranes moist Neck exam: Present: normal inspection. Absent: tenderness, meningismus, lymphadenopathy Respiratory exam: Present: wheezes. Absent: respiratory distress, rales, rhonchi, stridor Cardiovascular Exam: Present: regular rate, normal rhythm, normal heart sounds. Absent: systolic murmur, diastolic murmur, rubs, gallop, clicks GI/Abdominal exam: Present: soft, normal bowel sounds. Absent: distended, tenderness, guarding, rebound, rigid Extremities exam: Present: normal inspection, full ROM, normal capillary refill. Absent: tenderness, pedal edema, joint swelling, calf tenderness Back exam: Present: normal inspection Neurological exam: Present: alert, oriented X3, CN II-XII intact Psychiatric exam: Present: normal affect, normal mood Skin exam: Present: warm, dry, intact, normal color. Absent: rash <Jayesh Almonte - Last Filed: 10/10/19 12:45> - General Exam Comments Initial Comments: Constitutional: NAD, AOX3, Pt has pleasant affect. HEENT: NC/AT, trachea midline, neck supple, no lymphadenopathy. Posterior pharynx non erythematous, without exudates. External ears appear normal, without discharge. Mucous membranes moist. Eyes PERRLA, EOM intact. There is no scleral icterus. No pallor noted. Cardiopulmonary: RRR, no murmurs, rubs or gallops, no JVD noted. Wheezing is noted in anterior posterior lung jackman. Resolved after breathing treatment. No peripheral edema. Abdominal exam: Abdomen soft and non-distended. Abdomen non-tender to palpation in all 4 quadrants. Bowel sounds active in LLQ. No hepatosplenomegaly. No ecchymosis Neuro: CN II-XII grossly intact. No nuchal rigidity. No raccon eyes, no chatterjee sign, no hemotympanum. No cervical spinal tenderness. MSK: No posterior calf tenderness bilaterally, homans sign negative bilaterally. Posterior tibialis and radial pulse +2 bilaterally. Sensation intact in upper and lower extremities. Full active ROM in upper and lower extremities, 5/5 stregnth. (Konrad Melara) Course <Jayesh Almonte - Last Filed: 10/10/19 12:45> Vital Signs 10/02/19 10/02/19 10/02/19 19:10 19:41 19:51 Temperature 98.5 F Pulse Rate 91 89 94 Respiratory 18 Rate Blood Pressure 136/80 O2 Sat by Pulse 98 Oximetry 10/02/19 10/02/19 10/02/19 20:13 20:21 20:34 Temperature Pulse Rate 89 81 83 Respiratory 18 Rate Blood Pressure 115/64 O2 Sat by Pulse 96 Oximetry 10/02/19 10/03/19 21:33 01:28 Temperature 97.9 F Pulse Rate 83 65 Respiratory 18 18 Rate Blood Pressure 137/64 126/84 O2 Sat by Pulse 98 100 Oximetry - Consultations Consultation #1: Patient was seen and evaluated psychiatry deemed stable for discharge home (Jayesh Almonte) Medical Decision Making - Lab Data Result diagrams: 10/02/19 20:08 10/02/19 20:08 - EKG Data -: EKG Interpreted by Me (and Dr. South ) <Konrad Melara - Last Filed: 10/02/19 23:20> - Lab Data Result diagrams: 10/02/19 20:08 10/02/19 20:08 <Jayesh Almonte - Last Filed: 10/10/19 12:45> - Medical Decision Making 54-year-old female patient was ED for chief complaint of asthma exacerbation. Physical exam didn't display wheezing and diminished air movement. After 2 breathing treatments patient is much improved. She states that her symptoms rodriguez ve resolved. She is moving good air. All wheezing has resolved. Chest x-ray revealed no acute process. Laboratory investigations are non-impressive. EKG is nonischemic. Chest x-ray revealed no acute process. Patient then reported that she is feeling depressed and wishes to speak to emergency psychiatric services. Patient is currently pending evaluation will be signed out to Dr. Almonte (Konrad Melara) 54 female DF for evaluation breathing treatments have significantly improve her story status, patient seen by psychiatry deemed stable for discharge home. Terrance erwin is not homicidal, suicidal (Jayesh Almonte) - Lab Data Lab Results 10/02/19 10/02/19 10/02/19 Range/Units 20:08 20:08 20:08 WBC 7.1 (3.8-10.6) k/uL RBC 4.66 (3.80-5.40) m/uL Hgb 14.1 (11.4-16.0) gm/dL Hct 40.5 (34.0-46.0) % MCV 87.0 (80.0-100.0) fL MCH 30.3 (25.0-35.0) pg MCHC 34.8 (31.0-37.0) g/dL RDW 13.2 (11.5-15.5) % Plt Count 234 (150-450) k/uL Neutrophils % 53 % Lymphocytes % 33 % Monocytes % 6 % Eosinophils % 5 % Basophils % 1 % Neutrophils # 3.7 (1.3-7.7) k/uL Lymphocytes # 2.3 (1.0-4.8) k/uL Monocytes # 0.4 (0-1.0) k/uL Eosinophils # 0.4 (0-0.7) k/uL Basophils # 0.1 (0-0.2) k/uL PT 9.7 (9.0-12.0) sec INR 0.9 (<1.2) APTT 22.4 (22.0-30.0) sec Sodium 138 (137-145) mmol/L Potassium 3.9 (3.5-5.1) mmol/L Chloride 106 (98-107) mmol/L Carbon Dioxide 21 L (22-30) mmol/L Anion Gap 11 mmol/L BUN 15 (7-17) mg/dL Creatinine 0.93 (0.52-1.04) mg/dL Est GFR (CKD-EPI)AfAm 80 (>60 ml/min/1.73 sqM) Est GFR (CKD-EPI)NonAf 69 (>60 ml/min/1.73 sqM) Glucose 80 (74-99) mg/dL Plasma Lactic Acid Danilo (0.7-2.0) mmol/L Calcium 10.1 (8.4-10.2) mg/dL Total Bilirubin 0.3 (0.2-1.3) mg/dL AST 23 (14-36) U/L ALT 27 (4-34) U/L Alkaline Phosphatase 63 (38-126) U/L Troponin I (0.000-0.034) ng/mL Total Protein 7.0 (6.3-8.2) g/dL Albumin 4.4 (3.5-5.0) g/dL Urine Opiates Screen (NotDetected) Ur Oxycodone Screen (NotDetected) Urine Methadone Screen (NotDetected) Ur Propoxyphene Screen (NotDetected) Ur Barbiturates Screen (NotDetected) U Tricyclic Antidepress (NotDetected) Ur Phencyclidine Scrn (NotDetected) Ur Amphetamines Screen (NotDetected) U Methamphetamines Scrn (NotDetected) U Benzodiazepines Scrn (NotDetected) Urine Cocaine Screen (NotDetected) U Marijuana (THC) Screen (NotDetected) Coronavirus (PCR) (Not Detected) 10/02/19 10/02/19 10/02/19 Range/Units 20:08 20:08 20:13 WBC (3.8-10.6) k/uL RBC (3.80-5.40) m/uL Hgb (11.4-16.0) gm/dL Hct (34.0-46.0) % MCV (80.0-100.0) fL MCH (25.0-35.0) pg MCHC (31.0-37.0) g/dL RDW (11.5-15.5) % Plt Count (150-450) k/uL Neutrophils % % Lymphocytes % % Monocytes % % Eosinophils % % Basophils % % Neutrophils # (1.3-7.7) k/uL Lymphocytes # (1.0-4.8) k/uL Monocytes # (0-1.0) k/uL Eosinophils # (0-0.7) k/uL Basophils # (0-0.2) k/uL PT (9.0-12.0) sec INR (<1.2) APTT (22.0-30.0) sec Sodium (137-145) mmol/L Potassium (3.5-5.1) mmol/L Chloride (98-107) mmol/L Carbon Dioxide (22-30) mmol/L Anion Gap mmol/L BUN (7-17) mg/dL Creatinine (0.52-1.04) mg/dL Est GFR (CKD-EPI)AfAm (>60 ml/min/1.73 sqM) Est GFR (CKD-EPI)NonAf (>60 ml/min/1.73 sqM) Glucose (74-99) mg/dL Plasma Lactic Acid Danilo 1.8 (0.7-2.0) mmol/L Calcium (8.4-10.2) mg/dL Total Bilirubin (0.2-1.3) mg/dL AST (14-36) U/L ALT (4-34) U/L Alkaline Phosphatase (38-126) U/L Troponin I <0.012 (0.000-0.034) ng/mL Total Protein (6.3-8.2) g/dL Albumin (3.5-5.0) g/dL Urine Opiates Screen (NotDetected) Ur Oxycodone Screen (NotDetected) Urine Methadone Screen (NotDetected) Ur Propoxyphene Screen (NotDetected) Ur Barbiturates Screen (NotDetected) U Tricyclic Antidepress (NotDetected) Ur Phencyclidine Scrn (NotDetected) Ur Amphetamines Screen (NotDetected) U Methamphetamines Scrn (NotDetected) U Benzodiazepines Scrn (NotDetected) Urine Cocaine Screen (NotDetected) U Marijuana (THC) Screen (NotDetected) Coronavirus (PCR) Not Detected (Not Detected) 10/02/19 Range/Units 23:06 WBC (3.8-10.6) k/uL RBC (3.80-5.40) m/uL Hgb (11.4-16.0) gm/dL Hct (34.0-46.0) % MCV (80.0-100.0) fL MCH (25.0-35.0) pg MCHC (31.0-37.0) g/dL RDW (11.5-15.5) % Plt Count (150-450) k/uL Neutrophils % % Lymphocytes % % Monocytes % % Eosinophils % % Basophils % % Neutrophils # (1.3-7.7) k/uL Lymphocytes # (1.0-4.8) k/uL Monocytes # (0-1.0) k/uL Eosinophils # (0-0.7) k/uL Basophils # (0-0.2) k/uL PT (9.0-12.0) sec INR (<1.2) APTT (22.0-30.0) sec Sodium (137-145) mmol/L Potassium (3.5-5.1) mmol/L Chloride (98-107) mmol/L Carbon Dioxide (22-30) mmol/L Anion Gap mmol/L BUN (7-17) mg/dL Creatinine (0.52-1.04) mg/dL Est GFR (CKD-EPI)AfAm (>60 ml/min/1.73 sqM) Est GFR (CKD-EPI)NonAf (>60 ml/min/1.73 sqM) Glucose (74-99) mg/dL Plasma Lactic Acid Danilo (0.7-2.0) mmol/L Calcium (8.4-10.2) mg/dL Total Bilirubin (0.2-1.3) mg/dL AST (14-36) U/L ALT (4-34) U/L Alkaline Phosphatase (38-126) U/L Troponin I (0.000-0.034) ng/mL Total Protein (6.3-8.2) g/dL Albumin (3.5-5.0) g/dL Urine Opiates Screen Not Detected (NotDetected) Ur Oxycodone Screen Not Detected (NotDetected) Urine Methadone Screen Not Detected (NotDetected) Ur Propoxyphene Screen Not Detected (NotDetected) Ur Barbiturates Screen Not Detected (NotDetected) U Tricyclic Antidepress Not Detected (NotDetected) Ur Phencyclidine Scrn Not Detected (NotDetected) Ur Amphetamines Screen Not Detected (NotDetected) U Methamphetamines Scrn Not Detected (NotDetected) U Benzodiazepines Scrn Not Detected (NotDetected) Urine Cocaine Screen Not Detected (NotDetected) U Marijuana (THC) Screen Not Detected (NotDetected) Coronavirus (PCR) (Not Detected) - EKG Data EKG Comments: Ventricular rate 88, NJ interval 154, QRS 84, QT/QTC 344/416. Normal sinus rhythm, rightward axis, borderline EKG, no concern for acute ischemia at this time. (Konrad Melara) Disposition Is patient prescribed a controlled substance at d/c from ED?: No <Konrad Melara - Last Filed: 10/02/19 23:20> Is patient prescribed a controlled substance at d/c from ED?: No <Jayesh Almnote - Last Filed: 10/10/19 12:45> Clinical Impression: Asthma exacerbation, Depression, Major depressive disorder, recurrent severe without psychotic features, Generalized anxiety disorder Disposition: HOME SELF-CARE Condition: Fair Instructions (If sedation given, give patient instructions): Asthma (ED), Depression (ED) Additional Instructions: Follow-up with primary care provider tomorrow. Take medication as directed. Return to ER if condition worsens. Prescriptions: predniSONE 50 mg PO DAILY #4 tab Albuterol Nebulized [Ventolin Nebulized] 2.5 mg INHALATION Q4H PRN 10 Days #40 nebu PRN Reason: Cough Referrals: Ashly Lopes MD [Primary Care Provider] - 1-2 days
[2019-10-02 23:45] LABS: Amphetamine Screen,Urine Not Detected (NotDetected); Barbiturate Screen,Urine Not Detected (NotDetected); Benzodiazepines Screen,Urine Not Detected (NotDetected); Cocaine Screen,Urine Not Detected (NotDetected); Methadone Screen, Urine Not Detected (NotDetected); Opiate Screen,Urine Not Detected (NotDetected); Oxycodone Screen, Urine Not Detected (NotDetected); Phencyclidine Screen,Urine Not Detected (NotDetected); Tricyclic Antidepressant,Urine Not Detected (NotDetected); Urn Cannabinoid Scrn Not Detected (NotDetected)
[2019-10-03 01:29] VITALS: BP 126/84; PULSE 65; TEMP 97.9
== END 2019-10-03 01:28 | disposition home or self-care (01) ==
LOC: EC 19:08
DX: J45.901 Unspecified asthma with (acute) exacerbation (principal); F33.2 Major depressive disorder, recurrent severe without psychotic features; F41.1 Generalized anxiety disorder; Z79.899 Other long term (current) drug therapy; Z88.1 Allergy status to other antibiotic agents; Z91.040 Latex allergy status
CPT/HCPCS: 99285 ×2; 96374 ×2; 82075; 36415 ×2; 94640 ×2; 93005; 84439; 80061; 80053; 82607; 83605; 84443; 84484; 85025; 85027; 85610; 85730; 82306; 80306; 71046; U0003; J2930

== ENCOUNTER → 2019-10-02 | Outpatient (CLI) | payer MEDICARE ==
[2019-10-02 11:40] LABS: HCT 41.8 % (34.0-46.0); MCH 30.1 pg (25.0-35.0); MCHC 33.5 g/dL (31.0-37.0); MCV 89.7 fL (80.0-100.0); Mean Platelet Volume 8.8; Platelet Count 213 k/uL (150-450); RBC 4.67 m/uL (3.80-5.40); RDW 13.2 % (11.5-15.5); WBC 5.6 k/uL (3.8-10.6)
[2019-10-02 16:41] LABS: Chol/HDL Ratio 5.16; LDL Cholesterol,Calculated 150.2 mg/dL (0.0-131.0); VLDL Calculation 28.8 mg/dL (5.00-40.00)
== END | disposition home or self-care (01) ==
LOC: LABWHC1 09:54
PROVIDERS: ATTEND Internal Medicine
DX: J45.909 Unspecified asthma, uncomplicated (principal); R53.83 Other fatigue
CPT/HCPCS: 36415; 80061; 82306; 82607; 84439; 84443; 85027

== ENCOUNTER → 2020-01-09 | Outpatient (CLI) | payer MEDICARE | END | disposition home or self-care (01) | LOC: LABWHC1 08:36 | PROVIDERS: ATTEND Internal Medicine Critical Care Medicine | DX: J45.50 Severe persistent asthma, uncomplicated (principal) | CPT/HCPCS: 36415; 82785; 85008 ==

== ENCOUNTER 2022-07-07 20:35 | Inpatient (IN) | payer MEDICARE ==
[2022-07-07] MEDS ORDERED: methylPREDNISolone SOD SUCCI 125 MG/2 ML VIAL IV STA (20:43)
[2022-07-07] MEDS ORDERED: ALBUTEROL NEBULIZED 2.5 MG/3 ML INHALATION STA ×2 (20:43→21:41)
[2022-07-07] MEDS ORDERED: SODIUM CHLORIDE 0.9% 1,000 ML IV STA (20:44)
[2022-07-07 21:02] LABS: Basophils # (A) 0.1 k/uL (0-0.2); Basophils % (A) 1 %; Eosinophils # (A) 0.2 k/uL (0-0.7); Eosinophils % (A) 2 %; HCT 40.3 % (34.0-46.0); HGB 14.5 gm/dL (11.4-16.0); Lymphocytes # (A) 2.9 k/uL (1.0-4.8); Lymphocytes % (A) 32 %; MCH 30.5 pg (25.0-35.0); MCHC 35.9 g/dL (31.0-37.0); MCV 85.1 fL (80.0-100.0); Mean Platelet Volume 9.1; Monocytes # (A) 0.5 k/uL (0-1.0); Monocytes % (A) 6 %; Neutrophils # (A) 5.2 k/uL (1.3-7.7); Neutrophils % (A) 58 %; Platelet Count 206 k/uL (150-450); RBC 4.74 m/uL (3.80-5.40); RDW 13.7 % (11.5-15.5); WBC 8.9 k/uL (3.8-10.6)
[2022-07-07 21:12] LABS: Albumin 4.5 g/dL (3.5-5.0); Calcium 9.5 mg/dL (8.4-10.2); Total Bilirubin 0.4 mg/dL (0.2-1.3); Total Protein 7.1 g/dL (6.3-8.2)
--- NOTE | 2022-07-07 21:16 | XR ---
EXAMINATION TYPE: XR chest 2V DATE OF EXAM: 07/07/2022 COMPARISON: 10/02/2019 HISTORY: Wheezing TECHNIQUE: 2 views FINDINGS: Heart and mediastinum are normal. Lungs are clear. Diaphragm is normal. Bony thorax is inta ct there are chest leads. IMPRESSION: Normal chest. No change
[2022-07-07] MEDS ORDERED: PANTOPRAZOLE 40 MG/10 ML VIAL IVP STA (21:45)
[2022-07-07] MEDS ORDERED: FAMOTIDINE 20 MG/2 ML VIAL IV STA (21:45)
[2022-07-07 22:02] LABS: Potassium 3.7 mmol/L (3.5-5.1)
[2022-07-07] MEDS ORDERED: IPRATROPIUM 0.5 MG/2.5 ML NEBU INHALATION PRN (22:37)
[2022-07-07] MEDS ORDERED: ALBUTEROL NEBULIZED 2.5 MG/3 ML INHALATION PRN (22:45)
[2022-07-07] MEDS ORDERED: NALOXONE 0.4 MG/ML 1 ML VIAL IV PRN (22:50)
--- NOTE | 2022-07-07 23:23 | ED ---
SOB HPI - General Chief Complaint: Shortness of Breath Stated Complaint: Difficulty Breathing Time Seen by Provider: 07/07/22 20:43 Source: patient Mode of arrival: ambulatory Limitations: no limitations - History of Present Illness Initial Comments: Patient is a 56-year-old female who presents to the emergency department for shortness of breath. Patient has a history of asthma states she has acute exacerbations a couple times a year usually in the spring. Patient began having upper respiratory symptoms over the weekend including congestion and productive cough with clear phelgm. She spoke with her life manager Dr. Melgar who told her to go to urgent care. She went to urgent care yesterday during which she was Decadron shot and placed on Augmentin. Patient still feeling very short of breath with wheezing. She has used her albuterol nebulizer throughout the day today. She denies chest pain. Denies fever and chills. - Related Data Home Medications Medication Instructions Recorded Confirmed Albuterol Sulfate [Ventolin HFA] 2 puff INHALATION RT-Q6H PRN 03/11/14 07/07/22 traZODone HCL 150 mg PO HS 03/11/14 07/07/22 Sertraline HCl [Zoloft] 150 mg PO HS 10/02/19 07/07/22 Amoxic-Pot Clav 875-125Mg 1 tab PO Q12H 07/07/22 07/07/22 [Augmentin 875-125] Cpm/PE/Dm/Acetaminophen/Guaifn 1 tab PO BID 07/07/22 07/07/22 [Tylenol Cold-Flu Day-Nt Caplet] Allergies Allergy/AdvReac Type Severity Reaction Status Date / Time erythromycin base Allergy Rash/Hives Verified 07/07/22 21:54 latex Allergy Rash/Hives Verified 07/07/22 21:54 Review of Systems ROS Statement: Those systems with pertinent positive or pertinent negative responses have been documented in the HPI. ROS Other: All systems not noted in ROS Statement are negative. Past Medical History Past Medical History: Asthma, Eye Disorder, GERD/Reflux, Osteoarthritis (OA) Additional Past Medical History / Comment(s): Hx of detached retina History of Any Multi-Drug Resistant Organisms: None Reported Past Surgical History: Breast Surgery, Hernia Repair, Tonsillectomy Additional Past Surgical History / Comment(s): anabell breast reduction, D and C for heavy bleeding Past Anesthesia/Blood Transfusion Reactions: No Reported Reaction Past Psychological History: ADD/ADHD, Anxiety, Depression Past Alcohol Use History: None Reported Past Drug Use History: None Reported - Past Family History Mother Family Medical History: Cancer Additional Family Medical History / Comment(s): Lung CA, ETOH Father Family Medical History: Cancer Additional Family Medical History / Comment(s): Skin Ca General Exam Limitations: no limitations General appearance: alert Head exam: Present: atraumatic, normocephalic, normal inspection Eye exam: Present: normal appearance, PERRL, EOMI. Absent: scleral icterus, conjunctival injection, periorbital swelling Respiratory exam: Present: normal lung sounds bilaterally, wheezes (audible ), decreased breath sounds. Absent: respiratory distress, rales, rhonchi, stridor, accessory muscle use Cardiovascular Exam: Present: regular rate, tachycardia, normal heart sounds. Absent: normal rhythm, systolic murmur, diastolic murmur, rubs, gallop, clicks Psychiatric exam: Present: normal affect, normal mood Skin exam: Present: warm, dry, intact, normal color. Absent: rash Course Vital Signs 07/07/22 07/07/22 07/07/22 20:40 20:58 21:00 Temperature 98.5 F Pulse Rate 119 H 107 H Respiratory 36 H 28 H Rate Blood Pressure 133/71 125/99 O2 Sat by Pulse 99 96 Oximetry 07/07/22 07/07/22 07/07/22 21:15 21:26 21:30 Temperature Pulse Rate 96 96 105 H Respiratory Rate Blood Pressure 131/96 116/90 O2 Sat by Pulse 99 100 Oximetry 07/07/22 07/07/22 07/07/22 21:37 21:54 22:08 Temperature Pulse Rate 98 96 99 Respiratory Rate Blood Pressure O2 Sat by Pulse Oximetry 07/07/22 07/07/22 22:29 23:06 Temperature Pulse Rate 110 H 105 H Respiratory 20 Rate Blood Pressure O2 Sat by Pulse 97 Oximetry Medical Decision Making - Medical Decision Making Was pt. sent in by a medical professional or institution (, PA, FOSTER CARE THERAPIST, urgent care, hospital, or usp...) When possible be specific @ -No Did you speak to anyone other than the patient for history (EMS, parent, family, police, friend...)? What history was obtained from this source @ -No Did you review nursing and triage notes (agree or disagree)? Why? @ -I reviewed and agree with nursing and triage notes Were old charts reviewed (outside hosp., previous admission, EMS record, old EKG, old radiological studies, urgent care reports/EKG's, usp records)? Report findings @ -No old charts were reviewed Differential Diagnosis (chest pain, altered mental status, abdominal pain women, abdominal pain men, vaginal bleeding, weakness, fever, dyspnea, syncope, headache, dizziness, GI bleed, back pain, seizure, CVA, palpatations, mental health)? @ -Differential Dyspnea: Coronary syndrome, arrhythmia, tamponade, asthma, COPD, pulmonary embolism, pneumonia, pneumothorax, pulmonary effusion, anaphylaxis, diabetic ketoacidosis, flailed chest, pulmonary contusion, diaphragmatic rupture, anemia, neuromuscular, this is not meant to be an all-inclusive list. EKG interpreted by me (3pts min.). @ -As above X-rays interpreted by me (1pt min.). @ - X-ray negative for pneumonia and other acute processeted by me (1pt min.). @ -None done U/S interpreted by me (1pt. min.). @ -None done What testing was considered but not performed or refused? (CT, X-rays, U/S, la bs)? Why? @ -None What meds were considered but not given or refused? Why? @ -None Did you discuss the management of the patient with other professionals (professionals i.e. , PA, FOSTER CARE THERAPIST, lab, RT, psych nurse, social secretary, doping supervisor, teacher, chief strategy officer, shoe caser)? Give summary @ -No Was smoking cessation discussed for >3mins.? @ -No Was critical care preformed (if so, how long)? @ -No Were there social determinants of health that impacted care today? How? (Homelessness, low income, unemployed, alcoholism, drug addiction, transportation, low edu. Level, literacy, decrease access to med. care, halfway, rehab)? @ -No Was there de-escalation of care discussed even if they declined (Discuss DNR or withdrawal of care, Hospice)? DNR status @ -No] What co-morbidities impacted this encounter? (DM, HTN, Smoking, COPD, CAD, Cance r, CVA, ARF, Chemo, Hep., AIDS, mental health diagnosis, sleep apnea, morbid obesity)? @ -[None] Was patient admitted / discharged? Hospital course, mention meds given and route, prescriptions, significant lab abnormalities, going to OR and other pertinent info. @ -Patient presenting with shortness of breath. Patient appears short of breat h she is tachypneic with audible wheeze. She is unable to speak in full sentences. No hypoxia. Chest x-ray negative for acute process. Patient given Solu-Medrol and breathing treatments little improvement audible wheeze continues. Patient will be admitted for [id number] breathing treatments and pulmonary evaluation. Admitted in stable condition. Undiagnosed new problem with uncertain prognosis? @ -[No] Drug Therapy requiring intensive monitoring for toxicity (Heparin, Nitro, Insulin, Cardizem)? @ -[No] Were any procedures done? @ -[No] Diagnosis/symptom? @ -asthma exacerbation Acute, or Chronic, or Acute on Chronic? @ -acute Uncomplicated (without systemic symptoms) or Complicated (systemic symptoms)? @ -uncomplicated Side effects of treatment? @ -[No] Exacerbation, Progression, or Severe Exacerbation? @ -[No] Poses a threat to life or bodily function? How? (Chest pain, [place], [place], pneumonia, PE, COPD, DKA, ARF, appy, cholecystitis, CVA, Diverticulitis, Homicidal, Suicidal, threat to staff... and all critical care pts) @ -[No] Dr. Pack is my attending - Lab Data Result diagrams: 07/07/22 20:52 07/07/22 20:52 Lab Results 07/07/22 07/07/22 07/07/22 Range/Units 20:52 20:52 20:52 WBC 8.9 (3.8-10.6) k/uL RBC 4.74 (3.80-5.40) m/uL Hgb 14.5 (11.4-16.0) gm/dL Hct 40.3 (34.0-46.0) % MCV 85.1 (80.0-100.0) fL MCH 30.5 (25.0-35.0) pg MCHC 35.9 (31.0-37.0) g/dL RDW 13.7 (11.5-15.5) % Plt Count 206 (150-450) k/uL MPV 9.1 Neutrophils % 58 % Lymphocytes % 32 % Monocytes % 6 % Eosinophils % 2 % Basophils % 1 % Neutrophils # 5.2 (1.3-7.7) k/uL Lymphocytes # 2.9 (1.0-4.8) k/uL Monocytes # 0.5 (0-1.0) k/uL Eosinophils # 0.2 (0-0.7) k/uL Basophils # 0.1 (0-0.2) k/uL Sodium 140 (137-145) mmol/L Potassium 3.7 (3.5-5.1) mmol/L Chloride 107 (98-107) mmol/L Carbon Dioxide 22 (22-30) mmol/L Anion Gap 11 mmol/L BUN 8 (7-17) mg/dL Creatinine 0.84 (0.52-1.04) mg/dL Est GFR (CKD-EPI)AfAm 89 (>60 ml/min/1.73 sqM) Est GFR (CKD-EPI)NonAf 77 (>60 ml/min/1.73 sqM) Glucose 125 H (74-99) mg/dL Calcium 9.5 (8.4-10.2) mg/dL Total Bilirubin 0.4 (0.2-1.3) mg/dL AST 27 (14-36) U/L ALT 36 H (4-34) U/L Alkaline Phosphatase 64 (38-126) U/L Total Protein 7.1 (6.3-8.2) g/dL Albumin 4.5 (3.5-5.0) g/dL Influenza Type A (PCR) Not Detected (Not Detectd) Influenza Type B (PCR) Not Detected (Not Detectd) RSV (PCR) Not Detected (Not Detectd) SARS-CoV-2 (PCR) Not Detected (Not Detectd) Disposition Clinical Impression: Asthma exacerbation Disposition: ADMITTED IP TO THIS HOSP Condition: Stable
[2022-07-08 03:00] VITALS: RESP 18
[2022-07-08 08:32] VITALS: BP 147/79; TEMP 98.6
[2022-07-08] MEDS: ALBUTEROL NEBULIZED 2.5 MG/3 ML INHALATION SCH ×2 (09:21→12:31)
[2022-07-08] MEDS: IPRATROPIUM 0.5 MG/2.5 ML NEBU INHALATION SCH ×2 (09:21→12:31)
[2022-07-08] MEDS ORDERED: AZITHROMYCIN 250 MG TAB PO SCH (10:30)
[2022-07-08] MEDS ORDERED: predniSONE 10 MG TAB PO SCH (10:30)
--- NOTE | 2022-07-08 10:33 | P.CNPUL ---
History of Present Illness Consult date: 07/08/22 Reason for consult: dyspnea, asthma History of present illness: 56-year-old female patient, asthmatic, moderately severe disease and the patient was not taking any maintenance as for medications. Recently, she started getting more short of breath. She started taking BReo Ellipta that was provided to her by her sister. She ultimately ended up in urgent care. She was given a course of oral Bactrim and Decadron. She is quite sensitive to prednisone. Nevertheless, the patient did not improve mentioned upcoming into the emergency department with cough and congestion. No fever. Covid 19 testing was negative. She was feeling bronchospastic and wheezy. She was given steroids in the emergency along with bronchodilators. Currently, she is doing well. She is afebrile. She is able to speak of. This is without having any major diffi culties. WBC count of 8.0 with a hemoglobin 14.5 and a platelet count of 206. BUN is at 8 with a creatinine of 0.4. Sodium is at 140. Influenza screen is negative. RSV is negative. Covid 19 testing is negative. LFTs are normal. Review of Systems Constitutional: Reports as per HPI Eyes: denies as per HPI, denies blurred vision, denies bulging eye, denies decreased vision, denies diplopia, denies discharge, denies dry eye, denies irritation, denies itching, denies pain, denies photophobia, denies loss of peripheral vision, denies loss of vision, denies tunnel vision/blind spots Ears: deny: decreased hearing, ear discharge, earache, tinnitus Ears, nose, mouth and throat: Reports as per HPI Breasts: absent: as per HPI, change in shape, gynecomastia, masses, nipple discharge, pain, skin changes, swelling Cardiovascular: Reports decreased exercise tolerance, Reports dyspnea on exertion Respiratory: Reports cough, Reports dyspnea, Reports wheezing Gastrointestinal: Reports as per HPI Genitourinary: Reports as per HPI Menstruation: Reports as per HPI Musculoskeletal: Reports as per HPI Musculoskeletal: absent: ankle pain, ankle stiffness, ankle swelling Integumentary: Reports as per HPI Neurological: Reports as per HPI Psychiatric: Reports as per HPI Endocrine: Reports as per HPI Hematologic/Lymphatic: Reports as per HPI Allergic/Immunologic: Reports as per HPI Past Medical History Past Medical History: Asthma, Eye Disorder, GERD/Reflux, Osteoarthritis (OA) Additional Past Medical History / Comment(s): Hx of detached retina History of Any Multi-Drug Resistant Organisms: None Reported Past Surgical History: Breast Surgery, Hernia Repair, Tonsillectomy Additional Past Surgical History / Comment(s): anabell breast reduction, D and C for heavy bleeding Past Anesthesia/Blood Transfusion Reactions: No Reported Reaction Past Psychological History: ADD/ADHD, Anxiety, Depression Additional Psychological History / Comment(s): BPD, add Smoking Status: Never smoker Past Alcohol Use History: None Reported Past Drug Use History: None Reported Additional Drug Use History / Comment(s): On occasion - Past Family History Mother Family Medical History: Cancer Additional Family Medical History / Comment(s): Lung CA, ETOH Father Family Medical History: Cancer Additional Family Medical History / Comment(s): Skin Ca Medications and Allergies Home Medications Medication Instructions Recorded Confirmed Type Albuterol Sulfate [Ventolin HFA] 2 puff INHALATION RT-Q6H PRN 03/11/14 07/07/22 History traZODone HCL 150 mg PO HS 03/11/14 07/07/22 History Sertraline HCl [Zoloft] 150 mg PO HS 10/02/19 07/07/22 History Amoxic-Pot Clav 875-125Mg 1 tab PO Q12H 07/07/22 07/07/22 History [Augmentin 875-125] Cpm/PE/Dm/Acetaminophen/Guaifn 1 tab PO BID 07/07/22 07/07/22 History [Tylenol Cold-Flu Day-Nt Caplet] Allergies Allergy/AdvReac Type Severity Reaction Status Date / Time erythromycin base Allergy Rash/Hives Verified 07/07/22 21:54 latex Allergy Rash/Hives Verified 07/07/22 21:54 Physical Exam Vitals: Vital Signs Temp Pulse Pulse Resp BP BP Pulse Ox 07/08/22 09:42 96 07/08/22 09:22 98 07/08/22 08:00 98.6 F 100 18 147/79 98 07/08/22 03:19 106 H 07/08/22 03:03 105 H 07/08/22 01:45 98.3 F 100 18 106/60 96 07/08/22 00:00 106 H 19 95 07/07/22 23:06 105 H 20 97 07/07/22 22:29 110 H 07/07/22 22:08 99 07/07/22 21:54 96 07/07/22 21:37 98 07/07/22 21:30 105 H 116/90 100 07/07/22 21:26 96 07/07/22 21:15 96 131/96 99 07/07/22 21:00 107 H 125/99 96 07/07/22 20:58 28 H 07/07/22 20:40 98.5 F 119 H 36 H 133/71 99 Intake and Output 07/07/22 07/08/22 07/08/22 22:59 06:59 14:59 Other: # Voids 3 # Bowel Movements 0 Weight 78.018 kg 78.018 kg The patient appeared well nourished and normally developed. Vital signs as documented. Head exam is unremarkable. No scleral icterus or corneal arcus noted. Neck is without jugular venous distension, thyromegaly, or carotid bruits. Carotid upstrokes are brisk bilaterally. Lungs are slightly diminished and the patient's she is getting expiratory wheeze. Cardiac exam reveals the PMI to be normally sized and situated. Rhythm is regular. First and second heart sounds normal. No murmurs, rubs or gallops. Abdominal exam reveals normal bowel sounds, no masses, no organomegaly and no aortic enlargement. Extremities are nonedematous and both femoral and pedal pulses are normal. MExamination of the skin revealed no evidence of significant rashes, suspicious appearing nevi or other concerning lesions.Neurologically, the patient is awake and alert and the patient does not have any focal neurological deficit. Cranial nerves are essentially intact. Results - Laboratory Findings CBC and BMP: 07/07/22 20:52 07/07/22 20:52 ABG WBC 8.9 k/uL (3.8-10.6) 07/07/22 20:52 RBC 4.74 m/uL (3.80-5.40) 07/07/22 20:52 Hgb 14.5 gm/dL (11.4-16.0) 07/07/22 20:52 Hct 40.3 % (34.0-46.0) 07/07/22 20:52 MCV 85.1 fL (80.0-100.0) 07/07/22 20:52 MCH 30.5 pg (25.0-35.0) 07/07/22 20:52 MCHC 35.9 g/dL (31.0-37.0) 07/07/22 20:52 RDW 13.7 % (11.5-15.5) 07/07/22 20:52 Plt Count 206 k/uL (150-450) 07/07/22 20:52 MPV 9.1 07/07/22 20:52 Neutrophils % 58 % 07/07/22 20:52 Lymphocytes % 32 % 07/07/22 20:52 Monocytes % 6 % 07/07/22 20:52 Eosinophils % 2 % 07/07/22 20:52 Basophils % 1 % 07/07/22 20:52 Neutrophils # 5.2 k/uL (1.3-7.7) 07/07/22 20:52 Lymphocytes # 2.9 k/uL (1.0-4.8) 07/07/22 20:52 Monocytes # 0.5 k/uL (0-1.0) 07/07/22 20:52 Eosinophils # 0.2 k/uL (0-0.7) 07/07/22 20:52 Basophils # 0.1 k/uL (0-0.2) 07/07/22 20:52 Sodium 140 mmol/L (137-145) 07/07/22 20:52 Potassium 3.7 mmol/L (3.5-5.1) 07/07/22 20:52 Chloride 107 mmol/L (98-107) 07/07/22 20:52 Carbon Dioxide 22 mmol/L (22-30) 07/07/22 20:52 Anion Gap 11 mmol/L 07/07/22 20:52 BUN 8 mg/dL (7-17) 07/07/22 20:52 Creatinine 0.84 mg/dL (0.52-1.04) 07/07/22 20:52 Est GFR (CKD-EPI)AfAm 89 (>60 ml/min/1.73 sqM) 07/07/22 20:52 Est GFR (CKD-EPI)NonAf 77 (>60 ml/min/1.73 sqM) 07/07/22 20:52 Glucose 125 mg/dL (74-99) H 07/07/22 20:52 Calcium 9.5 mg/dL (8.4-10.2) 07/07/22 20:52 Total Bilirubin 0.4 mg/dL (0.2-1.3) 07/07/22 20:52 AST 27 U/L (14-36) 07/07/22 20:52 ALT 36 U/L (4-34) H 07/07/22 20:52 Alkaline Phosphatase 64 U/L (38-126) 07/07/22 20:52 Total Protein 7.1 g/dL (6.3-8.2) 07/07/22 20:52 Albumin 4.5 g/dL (3.5-5.0) 07/07/22 20:52 Influenza Type A (PCR) Not Detected (Not Detectd) 07/07/22 20:52 Influenza Type B (PCR) Not Detected (Not Detectd) 07/07/22 20:52 RSV (PCR) Not Detected (Not Detectd) 07/07/22 20:52 SARS-CoV-2 (PCR) Not Detected (Not Detectd) 07/07/22 20:52 Abnormal lab findings: Abnormal Labs 07/07/22 20:52 Glucose 125 H ALT 36 H - Diagnostic Findings Chest x-ray: image reviewed Assessment and Plan Plan: Acute exacerbation of asthma, was treated on outpatient basis with a course of Augmentin and Decadron. The patient did not finish the course and she ended up coming into the hospital because of worsening shortness of breath. A chest x- ray is clear. She is improved on today's evaluation. She feels better Shortness of breath secondary to above Plan The patient can be discharged home on a course of Zithromax to 50 mg for the next 5 days, prednisone burst taper and I started on 30 mg to be delivered by 10 mg every 4 days. She has Breo Ellipta at home and this can be resumed along with albuterol updrafts. Her Covid 19 testing was negative. Labs are all within normal limits. Anticipate improvement. We will see her back in the office on outpatient basis.
--- NOTE | 2022-07-08 11:12 | P.HPIM ---
History of Present Illness Please consider this note as combined H&P and discharge summary This is a pleasant 56 race old female with past medical history of GERD, asthma since childhood, osteoarthritis. Her PCP is Dr. Salguero Patient states she can because of worsening dyspnea over the last 1-2 weeks, last week and she felt a little shortness of breath and she did not feel well she felt like she has some cold symptoms with a runny nose, sneezing and sinusitis but no sore throat, she went to urgent care who prescribed her Augmentin and Decadron showed, she thinks she felt partial improvement with Decadron but then she started getting worse after that, she does not think the Augmentin is helping her. She has little cough and little phlegm but no chest pain. She feels very weak and lethargic and that she has no energy She denies any change in urine or bowel habits. No fever. She denies dizziness weakness, numbness but she complains from headache Denies smoking alcohol or illicit drugs. Review of Systems Review of systems CONSTITUTIONAL: No fever, no malaise, no fatigue. HEENT: No recent visual problems or hearing problems. Denied any sore throat. CARDIOVASCULAR: No orthopnea, PND, no palpitations, no syncope. PULMONARY: No chest wall tenderness no cough, no hemoptysis. GASTROINTESTINAL: No diarrhea, no nausea, no vomiting, no abdominal pain. Normoactive bowel sounds. NEUROLOGICAL: No headaches, no weakness, no numbness. HEMATOLOGICAL: Denies any bleeding or petechiae. GENITOURINARY: Denies any burning micturition, frequency, or urgency. MUSCULOSKELETAL/RHEUMATOLOGICAL: Denies any joint pain, swelling, or any muscle pain. ENDOCRINE: Denies any polyuria or polydipsia. Past Medical History Past Medical History: Asthma, Eye Disorder, GERD/Reflux, Osteoarthritis (OA) Additional Past Medical History / Comment(s): Hx of detached retina History of Any Multi-Drug Resistant Organisms: None Reported Past Surgical History: Breast Surgery, Hernia Repair, Tonsillectomy Additional Past Surgical History / Comment(s): anabell breast reduction, D and C for heavy bleeding Past Anesthesia/Blood Transfusion Reactions: No Reported Reaction Past Psychological History: ADD/ADHD, Anxiety, Depression Additional Psychological History / Comment(s): BPD, add Smoking Status: Never smoker Past Alcohol Use History: None Reported Past Drug Use History: None Reported Additional Drug Use History / Comment(s): On occasion - Past Family History Mother Family Medical History: Cancer Additional Family Medical History / Comment(s): Lung CA, ETOH Father Family Medical History: Cancer Additional Family Medical History / Comment(s): Skin Ca Medications and Allergies Home Medications Medication Instructions Recorded Confirmed Type Albuterol Sulfate [Ventolin HFA] 2 puff INHALATION RT-Q6H PRN 03/11/14 07/07/22 History traZODone HCL 150 mg PO HS 03/11/14 07/07/22 History Sertraline HCl [Zoloft] 150 mg PO HS 10/02/19 07/07/22 History Cpm/PE/Dm/Acetaminophen/Guaifn 1 tab PO BID 07/07/22 07/07/22 History [Tylenol Cold-Flu Day-Nt Caplet] Azithromycin [Zithromax] 250 mg PO DAILY 4 Days #4 tab 07/08/22 Rx predniSONE 10 mg PO DIRECTED #24 tab 07/08/22 Rx Allergies Allergy/AdvReac Type Severity Reaction Status Date / Time erythromycin base Allergy Rash/Hives Verified 07/07/22 21:54 latex Allergy Rash/Hives Verified 07/07/22 21:54 Physical Exam Vitals: Vital Signs Temp Pulse Pulse Resp BP BP Pulse Ox 07/08/22 09:42 96 07/08/22 09:22 98 07/08/22 08:00 98.6 F 100 18 147/79 98 07/08/22 03:19 106 H 07/08/22 03:03 105 H 07/08/22 01:45 98.3 F 100 18 106/60 96 07/08/22 00:00 106 H 19 95 07/07/22 23:06 105 H 20 97 07/07/22 22:29 110 H 07/07/22 22:08 99 07/07/22 21:54 96 07/07/22 21:37 98 07/07/22 21:30 105 H 116/90 100 07/07/22 21:26 96 07/07/22 21:15 96 131/96 99 07/07/22 21:00 107 H 125/99 96 07/07/22 20:58 28 H 07/07/22 20:40 98.5 F 119 H 36 H 133/71 99 Intake and Output 07/07/22 07/08/22 07/08/22 22:59 06:59 14:59 Other: # Voids 3 # Bowel Movements 0 Weight 78.018 kg 78.018 kg GENERAL: The patient is alert and oriented x3, not in any acute distress. Well developed, well nourished. -HEENT: Pupils are round and equally reacting to light. EOMI. No scleral icterus. No conjunctival pallor. Normocephalic, atraumatic. No pharyngeal erythema. No thyromegaly. Right maxillary tenderness CARDIOVASCULAR: S1 and S2 present. No murmurs, rubs, or gallops. -PULMONARY: Chest is clear to auscultation, no crackles. Mild expiratory wheezing ABDOMEN: Soft, nontender, nondistended, normoactive bowel sounds. No palpable organomegaly. MUSCULOSKELETAL: No joint swelling or deformity. EXTREMITIES: No cyanosis, clubbing, or pedal edema. NEUROLOGICAL: Gross neurological examination did not reveal any focal deficits. SKIN: No rashes. no petechiae. Results CBC & Chem 7: 07/07/22 20:52 07/07/22 20:52 Labs: Abnormal Lab Results - Last 24 Hours (Table) 07/07/22 Range/Units 20:52 Glucose 125 H (74-99) mg/dL ALT 36 H (4-34) U/L Assessment and Plan Assessment: Acute asthma exacerbation Right maxillary sinusitis History of GERD History of osteoarthritis Plan: Patient actually has been seen by medical research tech and cleared her for discharge on Zithromax and tapered prednisone Problems and management plan were discussed with the patient and he verbalized understanding and acceptance Patient was found stable and can be discharged home in guarded prognosis however he needs follow-up as an outpatient. Patient was instructed to follow up with PCP Dr. Lopes within one week and patient agrees Patient was instructed to follow up with Dr. Melgar medical research tech in 1-2 weeks after discharge Time spent more than 35 minutes
[2022-07-08] MEDS ORDERED: ACETAMINOPHEN TAB 325 MG TAB PO STA (11:16)
[2022-07-08 12:44] VITALS: PULSE 84
== END 2022-07-08 12:47 | disposition home or self-care (01) | DRG 203 ==
LOC: EC 20:35 → 4SSUR 22:38
PROVIDERS: ADMIT Internal Medicine; ATTEND Internal Medicine
DX: J45.901 Unspecified asthma with (acute) exacerbation (principal); F32.A Depression, unspecified; Z20.822 Contact with and (suspected) exposure to COVID-19; J32.0 Chronic maxillary sinusitis; K21.9 Gastro-esophageal reflux disease without esophagitis; M19.90 Unspecified osteoarthritis, unspecified site; F41.9 Anxiety disorder, unspecified; F90.9 Attention-deficit hyperactivity disorder, unspecified type; Z79.899 Other long term (current) drug therapy; Z88.1 Allergy status to other antibiotic agents; Z91.040 Latex allergy status
CPT/HCPCS: 36415; 71046; 80053; 85025; 87636; 94640; 94644; 96361; 96374; 96375; 99285

== ENCOUNTER → 2024-01-15 | Outpatient (CLI) | payer MEDICARE ==
--- NOTE | 2024-01-16 10:34 | MM ---
Reason for Exam: Screening (asymptomatic). Last mammogram was performed 7 year(s) and 8 month(s) ago. Patient History: Menarche at age 9. First Full-Term at age 32. Late child-bearing (after 28). Postmenopausal. Patient has history of breast feeding. 04/2006, Bilateral Reduction. Risk Values: Jacquie 5 year model risk: 2.2%. NCI Lifetime model risk: 10.9%. Prior Study Comparison: 11/30/2005 Bilateral Screening Mammogram, [facility]. 04/13/2008 Bilateral Diagnostic Mammogram, [facility]. 10/25/2011 Bilateral Diagnostic Mammogram, [facility]. 05/11/2016 Bilateral Screening Mammogram, [facility]. Tissue Density: The breasts are almost entirely fatty. Findings: Analyzed By CAD. There is no suspicious group of microcalcifications or new suspicious mass in either breast. Overall Assessment: Benign, BI-RAD 2 Management: Screening Mammogram of both breasts in 1 year. . Patient should continue monthly self-breast exams. A clinical breast exam by your physician is recommended on an annual basis. This exam should not preclude additional follow-up of suspicious palpable abnormalities. Note on Jacquie scores and lifetime risk: 1. A Jacquie score greater than 3% is considered moderate risk. If this is the case, consider specialist referral to assess eligibility for a risk reducing agent. 2. If overall lifetime risk for the development of breast cancer is 20% or higher, the patient may qualify for future screening with alternating mammogram and breast MRI. [facility], , 01/16/2024 10:31 AM. Electronically signed and approved by: Thierno Benitez M.D. Radiologis
== END | disposition home or self-care (01) ==
LOC: RADMAMWWP 10:34
PROVIDERS: ATTEND Family Medicine
CPT/HCPCS: 77063; 77067

== ENCOUNTER → 2024-07-15 | Day surgery (SDC) | payer MEDICARE ==
[~2024-07-15] MED LIST: LACTATED RINGERS 1,000 ML IV SCH; LIDOCAINE 1% (10MG/ML) FOR IV START INTRADERMA PRN; PROPOFOL 10 MG/ML 20 ML VIAL IV ONE
[2024-07-15 08:41] VITALS: TEMP 97.7
[2024-07-15] MEDS: IV FLUID CONTINUATION 1,000 ML IV ONE ×2 (08:42→08:57)
[2024-07-15] MEDS: LACTATED RINGERS 1,000 ML IV SCH (08:43)
[2024-07-15 09:30] VITALS: RESP 16
--- NOTE | 2024-07-15 09:34 | P.PCN ---
Date of Procedure: 07/15/24 Procedure(s) Performed: PREOPERATIVE DIAGNOSIS: Colon cancer screening POSTOPERATIVE DIAGNOSIS: Small rectal polyp PROCEDURE: Colonoscopy with snare polypectomy ANESTHESIA: MAC SURGEON: Cholo Montgomery M.D. SPECIMENS: Rectal polyp ENDOSCOPIC PROCEDURE: The patient was placed on the endoscopy table in the left decubitus position. The Olympus colonoscope was inserted into the anus and passed under direct visualization to the base of the cecum. The appendiceal orifice was visualized. From that point the scope was slowly withdrawn inspecting all surfaces carefully. There were no neoplastic inflammatory or polypoid lesions throughout the cecum, ascending, transverse, descending, and sigmoid colon. In the rectum there was noted to be a small polyp that was removed using the snare with cautery technique. The patient had a whitish scar about 2 cm away from this rectal polyp that appeared to be related to the previous polypectomy site. The remainder of the rectum was normal. There was no visible diverticulosis. Digital rectal examination was normal. The patient was taken to the recovery room in stable condition per anesthesia guidelines. RECOMMENDATIONS: Patient described intermittent episodes of rectal prolapse. Consider colorectal surgery evaluation if this symptoms persist. Await biopsy results. Will contact patient with timing of next colonoscopy.
[2024-07-15 09:42] VITALS: BP 103/70; PULSE 80
== END ==
LOC: ORWHC2ENDO 07:43
PROVIDERS: ATTEND Surgery
DX: Z12.11 Encounter for screening for malignant neoplasm of colon (principal); K62.1 Rectal polyp
CPT/HCPCS: 45385; J2704; 88305